=== PATIENT | female | born 1965 | race Hispanic/Latino ===

== ENCOUNTER → 2022-01-26 | Outpatient (CLI) | payer OTHER | END | disposition home or self-care (01) | LOC: OIH 10:28 | PROVIDERS: ATTEND Internal Medicine Cardiovascular Disease | DX: I87.2 Venous insufficiency (chronic) (peripheral) (principal); R60.9 Edema, unspecified | CPT/HCPCS: 93970 ==

== ENCOUNTER → 2022-02-12 | Outpatient (CLI) | payer OTHER | END | disposition home or self-care (01) | LOC: SHCH 07:49 → EDUNIT# 08:00 | PROVIDERS: ATTEND Internal Medicine Cardiovascular Disease | DX: I11.9 Hypertensive heart disease without heart failure (principal); E11.9 Type 2 diabetes mellitus without complications; E78.5 Hyperlipidemia, unspecified | CPT/HCPCS: 93306 ==